=== PATIENT | female | born 1990 | race Caucasian/White ===

== ENCOUNTER 2017-01-16 05:23 | Emergency (ER) | payer BC ==
[~2017-01-16 05:23] MED LIST: NO MEDICATIONS
== END 2017-01-16 06:27 | disposition home or self-care (01) ==
LOC: SED 05:23
DX: S61.412A Laceration without foreign body of left hand, initial encounter (principal); Z23 Encounter for immunization; W45.8XXA Other foreign body or object entering through skin, initial encounter; Y92.098 Other place in other non-institutional residence as the place of occurrence of the external cause
CPT/HCPCS: 12001; 90471; 90715; 99283